=== PATIENT | female | born 1965 | race Two or more races ===

== ENCOUNTER → 2019-12-23 | Outpatient (CLI) | payer OTHER ==
--- NOTE | 2019-12-23 14:37 | RAD ---
EXAM: Bilateral knees, 3 views. HISTORY: Pain. COMPARISON: None. FINDINGS: 3 views of both knees are obtained. There is moderate left medial compartment joint space narrowing and moderate left medial and patellofemoral compartment spurring. There is mild left lateral and right medial, lateral and patellofemoral compartment spurring. There is a small left knee effusion. There are suspected small bilateral joint loose bodies. There is no fracture, dislocation or subluxation. IMPRESSION: 1. Moderate left and mild right knee osteoarthritis with suspected joint loose bodies and small left knee effusion. 2. No acute osseous finding. Electronically signed by: Elif Hines MD (12/23/2019 2:34 PM) [id number]
== END ==
LOC: RAD 13:58
PROVIDERS: ATTEND Family Medicine
DX: M17.11 Unilateral primary osteoarthritis, right knee (principal); M25.462 Effusion, left knee
CPT/HCPCS: 73562

== ENCOUNTER → 2021-07-14 | Outpatient (CLI) | payer OTHER ==
--- NOTE | 2021-07-14 13:33 | KCIC ---
Exam Date: 07/14/2021 9:30 AM MRI LEFT LOWER EXTREMITY JOINT WITHOUT Indication: Reason: LEFT KNEE PAIN / Spl. Instructions: / History: Anterior lt knee pain, sweliing, crepitus. Chronic. Known OA.. TECHNIQUE: Routine multiplanar MR imaging of the knee was performed without contrast. COMPARISON: Radiographs from December 23, 2019 FINDINGS: Complex tearing of the body and posterior horn of the medial meniscus is noted with extrusion of the body. The lateral meniscus is intact and within normal limits for age. The anterior cruciate ligament, posterior cruciate ligament, medial collateral ligament, and lateral collateral ligament complex are intact. Patellofemoral extensor mechanism and popliteus tendon are w ithin normal limits. There is extensive full-thickness chondral loss in the medial compartment with mild subchondral degen erative marrow signal. Partial thickness chondral defects are seen in the lateral compartment. Smal l focal full and partial thickness chondral defects are seen in the patellofemoral compartment. Moderate tricompartment osteophytes are noted. Bone marrow demonstrates benign signal on all sequenc es. No acute fracture is seen. There is small joint effusion. There is no popliteal cyst. There is a 12 mm calcified intra-articul ar body in the intercondylar notch anteriorly. IMPRESSION: Complex tearing of the medial meniscus with extrusion of the body. Extensive full-thickness chondral loss noted in the medial compartment. Full and partial thickness chondral defects identified to a lesser extent in the patellofemoral jerel rtment. 12 mm intra-articular body noted anteriorly. Electronically signed by: Dominic Renteria MD (07/14/2021 1:30 PM) [id number]
== END ==
LOC: KCIC MRI 09:03
PROVIDERS: ATTEND Family Medicine
DX: S83.232A Complex tear of medial meniscus, current injury, left knee, initial encounter (principal); M25.462 Effusion, left knee; M25.762 Osteophyte, left knee; X58.XXXA Exposure to other specified factors, initial encounter; Y93.89 Activity, other specified; Y92.89 Other specified places as the place of occurrence of the external cause; Y99.8 Other external cause status
CPT/HCPCS: 73721